=== PATIENT | male | born 2000 | race African-American/Black ===

== ENCOUNTER 2020-01-08 10:17 | Emergency (ER) | payer SELFPAY ==
[~2020-01-08] VITALS: Ht 182.9 cm; Wt 81.0 kg
[2020-01-08 14:12] VITALS: BP 120/78
== END 2020-01-08 14:13 | disposition home or self-care (01) ==
LOC: ER 10:43
DX: T50.901A Poisoning by unspecified drugs, medicaments and biological substances, accidental (unintentional), initial encounter (principal); M25.561 Pain in right knee; F17.210 Nicotine dependence, cigarettes, uncomplicated; Y92.488 Other paved roadways as the place of occurrence of the external cause
CPT/HCPCS: 73560; 82962; 99283; Z7610